=== PATIENT | female | born 1960 | race African-American/Black ===

== ENCOUNTER 2023-10-06 16:08 | Emergency (ER) | payer SELFPAY ==
[~2023-10-06] VITALS: Ht 162.6 cm; Wt 99.0 kg
[2023-10-06 17:17] VITALS: BP 184/99; PULSE 96; RESP 18; TEMP 98.1; O2SAT 98
== END 2023-10-06 17:31 | disposition left against medical advice (07) ==
LOC: ER 16:08
DX: S16.1XXA Strain of muscle, fascia and tendon at neck level, initial encounter (principal); S00.83XA Contusion of other part of head, initial encounter; I16.0 Hypertensive urgency; V43.52XA Car driver injured in collision with other type car in traffic accident, initial encounter; Y93.89 Activity, other specified; Y92.410 Unspecified street and highway as the place of occurrence of the external cause; Y99.8 Other external cause status
CPT/HCPCS: 70450; 70486; 72125

== ENCOUNTER 2023-10-08 12:55 | Emergency (ER) | payer OTHER ==
[~2023-10-08] VITALS: Ht 172.7 cm; Wt 160.5 kg
[2023-10-08] MEDS: cloNIDine HCL 0.1 MG TAB PO ONE (14:15)
[2023-10-08] MEDS: HYDROcodone-ACET 10/325MG TAB PO ONE (14:15)
[2023-10-08 14:29] LABS: Urine Bacteria None Seen /hpf (None Seen)
[2023-10-08 14:33] LABS: Basophils # (auto) 0 10 ^3/uL (0-0.2); Basophils % (auto) 0.3 % (0.0-2.0); Eosinophils # (auto) 0.4 10 ^3/uL (0-0.8); Monocytes # (auto) 0.8 10 ^3/uL (0-1.3); Nucleated Red Blood Cells % 0.1 %
[2023-10-08 14:35] LABS: Hematocrit 40.6 % (36.0-46.0); Hemoglobin 13.4 g/dL (12.2-16.2); Lymphocytes # (auto) 2.3 10 ^3/uL (0.4-5.4); Lymphocytes % (auto) 23.4 % (10.0-50.0); Mean Corpuscular Hemoglobin 26.6 pg (28.0-32.0); Mean Corpuscular Hgb Conc. 32.9 g/dL (32.0-36.0); Mean Corpuscular Volume 80.9 fL (80.0-100.0); Monocytes % (auto) 7.9 % (0.0-12.0); Neutrophils # (auto) 6.5 10 ^3/uL (1.6-8.6); Neutrophils % (auto) 64.4 % (37.0-80.0); Red Blood Cells 5.02 10^6/uL (4.0-5.20); Red Cell Distribution Width 15.5 % (11.8-14.3)
[2023-10-08 14:41] LABS: Urine Blood 3+ /uL (Negative); Urine Clarity Clear (Clear); Urine Color Light-Yellow (Yellow); Urine Protein, UAD Negative (Negative); Urine Specific Gravity 1.016 (1.001-1.035); Urine Urobilinogen Normal (Negative); Urine WBC 2 /hpf (0 - 5); Urine pH 6.5 (5.0-9.0)
[2023-10-08 14:53] LABS: Chloride 107 mmol/L (98-107); Potassium 4.1 mmol/L (3.5-5.1); Sodium 137 mmol/L (136-145)
[2023-10-08 14:54] LABS: Anion Gap 8 (5-15); Calcium 9.9 mg/dL (8.7-10.4); Carbon Dioxide 22 mmol/L (20-30)
[2023-10-08 14:59] LABS: BUN/Creatinine Ratio 17.9 (10.0-20.0); Blood Urea Nitrogen 14 mg/dL (9-23); Glucose 110 mg/dL (74-106)
[2023-10-08 16:45] VITALS: PULSE 80; RESP 18; O2SAT 98
[2023-10-08 19:00] VITALS: BP 185/94; PULSE 76; RESP 18; TEMP 98.8; O2SAT 98
== END 2023-10-08 22:39 | disposition short-term general hospital (02) ==
LOC: ER 13:08
DX: I16.1 Hypertensive emergency (principal); G89.4 Chronic pain syndrome; R51.9 Headache, unspecified; M54.2 Cervicalgia; M54.9 Dorsalgia, unspecified; Z79.899 Other long term (current) drug therapy
CPT/HCPCS: 36415; 80048; 81001; 82962; 84484; 85025; 93005